=== PATIENT | female | born 1955 | race Caucasian/White ===

== ENCOUNTER 2017-08-22 09:51 | Day surgery (SDC) | payer MEDICARE, OTHER ==
[~2017-08-22] VITALS: Ht 375.9 cm; Wt 72.2 kg
[~2017-08-22 09:51] MED LIST: ACEBUTCAFT PO; ALBU90I INH; ALBU90OI; ALBU90OI6 INH; AMOX875 PO; CITA20; CITA20 PO; CRUTCH4 USE; CYCL10; CYCL10 PO; DIPATR PO; DULO60 PO; GABA400; GABA600 PO; HYDACE5; HYDACE5 PO; HYDPAM25; HYDPAM25 PO; HYDPAM50 PO; HYDR1TAB94 PO; MECL25 PO; METCAR500 PO; Norco 5-325 Ta1 EACH PO; OMEP20ER PO; OXYACE5T PO; PROCODE120 PO; Seroquel Xr400 MG PO; Stool Softener100 MG PO; TRAACE PO; TRAM50; TRAM50 PO; VISTARIL; Zofran Odt4 MG SL
[2018-06-04] MEDS ORDERED: Zofran Odt8 MG SL (20:23)
[2018-06-04] MEDS ORDERED: Norco 5-325 Ta1 EACH PO (20:23)
== END 2017-08-22 12:45 | disposition home or self-care (01) ==
LOC: ORSCSDS 09:51
PROVIDERS: Surgery
PROC: 0DJD8ZZ Inspection of Lower Intestinal Tract, Via Natural or Artificial Opening Endoscopic (ICD-10-PCS; principal; 2017-08-22 11:00)
DX: Z12.11 Encounter for screening for malignant neoplasm of colon (principal); F17.210 Nicotine dependence, cigarettes, uncomplicated; J45.909 Unspecified asthma, uncomplicated; Z79.899 Other long term (current) drug therapy